=== PATIENT | female | born 1970 | race Two or more races ===

== ENCOUNTER 2022-12-30 22:46 | Emergency (ER) | payer OTHER ==
[~2022-12-30] VITALS: Ht 165.1 cm; Wt 99.8 kg
[2022-12-31] MEDS ORDERED: HYDROCHLOROTH12.5 MG PO (00:36)
[2022-12-31] MEDS ORDERED: METOPROLOL SUC100 MG PO (00:36)
[2022-12-31] MEDS ORDERED: METFORMIN HCL500 M3 PO (00:37)
[2022-12-31] MEDS ORDERED: ATORVASTATIN CA40 MG PO (00:38)
[2022-12-31 02:44] LABS: HEMATOCRIT 37.7 % (36.0-45.00); MEAN CELL VOLUME 89.9 fL (80.00-100.00); MEAN CORPUSCULAR HEMOGLOBIN 30.9 pg (27.00-32.0); MEAN CORPUSCULAR HGB CONC 34.3 g/dl (32.0-36.0); RED BLOOD COUNT 4.19 M/uL (4.00-6.00); RED CELL DISTRIBUTION WIDTH 13.9 % (11.5-14.5)
[2022-12-31 02:45] LABS: PLATELET COUNT 87 K/uL (150-450)
[2022-12-31 02:48] LABS: PH,URINE 5.5 (5.0-8.0); URINE APPEARANCE Cloudy; URINE BILIRRUBIN Negative (NEGATIVE); URINE BLOOD Negative; URINE COLOR Dark Yellow; URINE GLUCOSE Negative (NEGATIVE); URINE LEUKOCYTE Trace; URINE NITRATE Negative; URINE PROTEIN 30 (NEGATIVE)
[2022-12-31 02:52] LABS: URINE BACTERIA 389.3 uL (0.0-1933); URINE EPITHELIAL CELLS 95.3 uL (0.0-38.8); URINE RBC 35.3 uL (0.0-20.8); URINE WBC 12.5 uL (0.0-23.2)
[2022-12-31 03:12] LABS: URINE MUCUS HEAVY
[2022-12-31 03:31] LABS: BILIRUBIN TOTAL 0.38 mg/dL (0.3-1.2); CREATININE SERUM 1.22 mg/dL (0.55-1.02); GFR 46.11; POTASSIUM 3.67 mEq/L (3.5-5.1)
[2022-12-31] MEDS ORDERED: DOLOGESIC-DF 51 EACH PO (07:36)
== END 2022-12-31 07:50 ==
LOC: ER 22:46
PROVIDERS: General Practice
DX: B34.8 Other viral infections of unspecified site (principal); Z20.822 Contact with and (suspected) exposure to COVID-19